=== PATIENT | male | born 1985 | race Caucasian/White ===

== ENCOUNTER 2020-08-18 09:48 | Emergency (ER) | payer OTHER ==
[~2020-08-18 09:48] MED LIST: IBUPROFEN800 MG PO; NEXIUM20 MG PO
== END 2020-08-18 13:20 | disposition other institution (70) ==
LOC: FER 09:48
DX: S92.412B Displaced fracture of proximal phalanx of left great toe, initial encounter for open fracture (principal); Z23 Encounter for immunization; W29.3XXA Contact with powered garden and outdoor hand tools and machinery, initial encounter; Y92.009 Unspecified place in unspecified non-institutional (private) residence as the place of occurrence of the external cause
CPT/HCPCS: 73630; 90471; 90715; 96374; J2270